=== PATIENT | female | born 1980 | race American Indian/Alaskan Native ===

== ENCOUNTER 2017-05-22 23:09 | Emergency (ER) | payer SELFPAY ==
[2017-05-22 23:37] VITALS: BP 126/83; PULSE 85; RESP 18; TEMP 97.8; O2SAT 100
--- NOTE | 2017-05-23 00:21 | C.PDOC ---
History Of Present Illness 36 y/o F c/o scamp BRBPR with bowel movement for 2 days. Denies Hx of hemorrhoid , fever, chills, nausea, vomiting, abdominal pain, chest pain, or any other complaints. Time Seen by Provider: 05/23/17 00:05 Chief Complaint (Nursing): Female Genitourinary History Per: Patient History/Exam Limitations: no limitations Onset/Duration Of Symptoms: Days Current Symptoms Are (Timing): Still Present Severity: Mild Recent travel outside of the [place]: No Additional History Per: Patient Past Medical History Reviewed: Historical Data, Nursing Documentation, Vital Signs Vital Signs: Last Vital Signs Temp 97.8 F 05/22/17 23:33 Pulse 85 05/22/17 23:33 Resp 18 05/22/17 23:33 BP 126/83 05/22/17 23:33 Pulse Ox 100 05/23/17 00:21 Family History: States: Unknown Family Hx - Social History Hx Alcohol Use: No Hx Substance Use: No Review Of Systems Except As Marked, All Systems Reviewed And Found Negative. Constitutional: Negative for: Fever, Chills Cardiovascular: Negative for: Chest Pain Gastrointestinal: Positive for: Other (BRBPR with BM). Negative for: Nausea, Vomiting, Abdominal Pain Physical Exam - Physical Exam Appears: Non-toxic, No Acute Distress Skin: Warm, Dry Head: Atraumatic, Normacephalic Eye(s): bilateral: Normal Inspection Cardiovascular: Rhythm Regular, No Murmur Respiratory: Normal Breath Sounds, No Accessory Muscle Use, No Rales, No Rhonchi , No Wheezing Gastrointestinal/Abdominal: Soft, No Tenderness Rectal: Hemorrhoids (one nontender internal hemorrhoid at the 7oclock position) Neurological/Psych: Oriented x3, Normal Speech, Normal Cognition ED Course And Treatment O2 Sat by Pulse Oximetry: 100 (RA) Pulse Ox Interpretation: Normal Progress Note: rectal exam, Claudia batista, no stool/blood, + soft non- bleeding internal hemorroid 7o'clock position Medical Decision Making Medical Decision Making: Impression: 36 y/o F c/o scamp BRBPR with bowel movement for 2 days. internal hemorroids Disposition Doctor Will See Patient In The: Office Counseled Patient/Family Regarding: Studies Performed, Diagnosis - Disposition Referrals: [facility] [Outside] Non [facility] Provider, [Primary Care Provider] - Disposition: HOME/ ROUTINE Disposition Time: 00:20 Condition: GOOD Additional Instructions: eat more fresh fruits and vegetables to keep your stools soft brief time at the toilet Follow-up in our outpatient clinic for referral to Gastroenterology for further eval and consider Colonoscopy Instructions: Hemorrhoids (ED), Rectal Bleeding (ED) - Clinical Impression Clinical Impression: Rectal bleeding - Scribe Statement The provider has reviewed the documentation as recorded by the Alfredoibbatool [email or web address] All medical record entries made by the Luca were at my direction and personally dictated by me. I have reviewed the chart and agree that the record accurately reflects my personal performance of the history, physical exam, medical decision making, and the department course for this patient. I have also personally directed, reviewed, and agree with the discharge instructions and disposition.
== END 2017-05-23 00:25 | disposition home or self-care (01) ==
LOC: C.ER 23:09 → SUPCPDRO 23:09 → C.ER 05-23 00:25
DX: K62.5 Hemorrhage of anus and rectum (principal)

== ENCOUNTER 2018-10-17 20:41 | Emergency (ER) | payer MEDICAID ==
[2018-10-17 20:41] VITALS: BMI 32.7
[2018-10-17 21:07] VITALS: TEMP 98.2; O2SAT 98
--- NOTE | 2018-10-17 21:34 | C.PDOC ---
History Of Present Illness 38 year old female presents to the ED for evaluation of left upper toothache that gradually developed over 1 week. Patient admits to taking Tylenol today, with some improvement in the pain. Denies fever, chills, headache, drooling, trismus, shortness of breath, facial swelling, CP, dyspnea, wheezing, abd. pain, N/V, and any other associated symptoms. Ambulate to Ed, not in any apparent distress, Time Seen by Provider: 10/17/18 21:06 Chief Complaint (Nursing): Dental Pain History Per: Patient History/Exam Limitations: no limitations Onset/Duration Of Symptoms: Days Current Symptoms Are (Timing): Still Present Past Medical History Reviewed: Historical Data, Nursing Documentation, Vital Signs Vital Signs: Last Vital Signs Temp 98.2 F 10/17/18 21:05 Pulse 79 10/17/18 21:05 Resp 16 10/17/18 21:05 BP 138/83 10/17/18 21:05 Pulse Ox 98 10/17/18 21:05 - Medical History PMH: Denies: Depression, Diabetes, HTN - [facility] Procedures EXTRACTION OF POC, LOW CERVICAL, OPEN APPROACH (01/13/18) MONITORING OF POC, CARDIAC RATE, YOUTH AGENT APPROACH (01/13/18) Family History: States: Unknown Family Hx - Social History Hx Alcohol Use: No Hx Substance Use: No Review Of Systems Except As Marked, All Systems Reviewed And Found Negative. Constitutional: Negative for: Fever, Chills, Other (facial swelling.) ENT: Positive for: Mouth Pain (left upper toothache.). Negative for: Other (drooling.) Respiratory: Negative for: Shortness of Breath Musculoskeletal: Negative for: Other (tremors. ) Physical Exam - Physical Exam Appears: Well, Non-toxic, No Acute Distress Skin: Warm, Dry, No Rash, No Ecchymosis Head: Normacephalic Eye(s): bilateral: PERRL Ear(s): Bilateral: Normal Nose: No Flaring, No Discharge Oral Mucosa: Moist, No Drooling, No Trismus Tongue: Normal Appearing Lips: Normal Appearing Teeth: Tender To Palpation (#14), No Loose Gingiva: Erythema (#14), Swelling (#14), Tender (#14), Abscess (early #14, no flactulance) Throat: No Erythema, No Drooling, Other (uvula midline) Neck: Trachea Midline, Supple Cardiovascular: Rhythm Regular Respiratory: No Decreased Breath Sounds, No Accessory Muscle Use, No Stridor, No Wheezing Extremity: No Pedal Edema Neurological/Psych: Oriented x3, Normal Speech ED Course And Treatment O2 Sat by Pulse Oximetry: 98 (RA) Pulse Ox Interpretation: Normal Progress Note: On re-eval, pt afebrile, hemodynamicaly stable. NOn-toxic. Tolerate PO well in ED. PuslEOx 98% RA. Neck: Supple, (-) meningeal sign. ENT: exam c/w early abscess #14, no facial edema ,or erythema, no drooling or trismus . Lungs: CTA B/L, BS equal B/L. neuorlogicaly intact. Pt denies known hx of allergy to medication including PCN. Pt advised. ref. to f/u with Dentist In 1-2 days for re-eavl. return if any worsening or new changes. Disposition Counseled Patient/Family Regarding: Diagnosis, Need For Followup, Rx Given - Disposition Referrals: Nellie Enamorado MD [Medical Doctor] - [facility] [Provider Group] [facility] [Provider Group] Disposition: HOME/ ROUTINE Disposition Time: 21:44 Condition: STABLE Additional Instructions: Warm salty water tooth baths 2-3 times daily for 5 minutes' Take medication as prescribed Follow up with Dentist in 2-03 days for re-evaluation and further treatment Return if any new changes. 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 - Scribe Statement The provider has reviewed the documentation as recorded by the Scribe (Farzana Rosado) All medical record entries made by the Scribe were at my direction and personally dictated by me. I have reviewed the chart and agree that the record accurately reflects my personal performance of the history, physical exam, medical decision making, and the department course for this patient. I have also personally directed, reviewed, and agree with the discharge instructions and disposition.
[2018-10-17 23:21] VITALS: BP 128/72; PULSE 88; RESP 20
== END 2018-10-17 22:00 | disposition home or self-care (01) ==
LOC: C.ER 20:41
DX: K04.7 Periapical abscess without sinus (principal)